=== PATIENT | female | born 2000 | race Caucasian/White ===

== ENCOUNTER 2022-11-04 12:35 | Emergency (ER) | payer MEDICAID, SELFPAY ==
[2022-11-04 12:45] VITALS: BP 120/87; PULSE 111; RESP 20; TEMP 36.8; O2SAT 98; BMI 21.0
[2022-11-04 13:10] LABS: Appearance Urine Clear (Clear); Bilirubin Urine Negative (Negative); Blood Urine Negative (Negative); Color Urine Yellow (Yellow); Glucose Urine Negative (Negative); Ketones Urine Negative (Negative); Leukocyte Esterase Urine Trace (Negative); Nitrite Urine Negative (Negative); Protein Urine Negative (Negative); Urobilinogen Urine 0.2 (0.2-1.0); pH Urine 7.5 (5.0-8.5)
[2022-11-04 13:29] LABS: RBC Urine 0-2 (0-2); Squamous Epithelial Cell Urine Few (None-Few)
--- NOTE | 2022-11-04 13:35 | ED_ITS ---
HPI - Female Genitourinary General Chief complaint: Urogenital Problems, Female Stated complaint: UTI Time Seen by Provider: 11/04/22 12:37 History of Present Illness HPI Narrative: This 22-year-old female comes in reporting pain with itching and burning in her vaginal region. She wonders if she might have a urinary tract infection. She has had 1 of these in the past. She also states however that she has had recurrent itching and occasional discharge over the past year so. She has not been on any antibiotics recently. She does report some whitish discharge currently. She is otherwise in good health. She denies any possibility of sexually transmitted disease. Related Data Previous Rx's Medication Instructions Recorded fluconazole 150 mg tablet 150 mg PO DAILY PRN vaginal 11/04/22 irritation #10 tabs Allergies Allergy/AdvReac Type Severity Reaction Status Date / Time No Known Drug Allergies Allergy Verified 11/04/22 12:54 Review of Systems Status of ROS: Reports: 10 or more systems reviewed and unremarkable except as noted in History and below Narrative: Constitutional: No fevers, no weight gain or loss. Eyes: No discharge. No vision changes. HENT: No congestion, no sore throat, no ear pain. Cardiovascular: No chest pain, no palpitations. Respiratory: No shortness of breath, no wheezes, no cough. Gastrointestinal: No abdominal pain, no vomiting, no diarrhea. Genitourinary: Vaginal pain and itching with some whitish discharge. Musculoskeletal: Normal range of motion. Skin: No rashes, no pruritis. Neurological: No dizziness, weakness, sensory change, speech change. Endo/Heme/Allergies: No bruising or bleeding. No polydipsia. Pysch: no suicidality, no anxiety, no insomnia. All other systems reviewed and are negative. PFSH PFS Social History Smoking Status: Never smoker Do you use any of these nicotine containing products: None Second hand tobacco smoke exposure: No How often do you have a drink containing alcohol: 2-4 times a month How many standard drinks containing alcohol do you have on a typical day: 1 or 2 AUDIT-C Alcohol total score: 2 Non-prescribed substance use: denies use Exam Narrative: Exam Narrative: Constitutional: Well-developed, well-nourished, no acute distress. HEENT: Normocephalic, atraumatic. Neck: Normal range of motion. Nontender. Supple. Heart: Regular. No murmurs. Normal rate. Intact distal pulses. Lungs: Clear to auscultation. No chest discomfort. No wheezes, rhonchi, or rales. Abdomen: Normal bowel sounds. Nontender. No rebound tenderness. Genitalia: Normal appearance with small amount of whitish discharge. Back: No midline tenderness. Normal range of motion. Extremities: Normal range of motion. No injury. Skin: Intact. No rash. Warm. No erythema or pallor. Neurologic: No altered sensation. No weakness. Alert and oriented. Psychiatric: No suicidality. No anxiety or depression. No insomnia. Nursing notes and vitals signs are reviewed. Const: Vital Signs, click to edit/add: Vital Signs - 24 hr 11/04/22 12:45 Temperature 98.2 F Pulse Rate [Left P ulse Oximeter] 111 H Respiratory Rate 20 Blood Pressure [Le ft Upper Arm] 120/87 Pulse Oximetry 98 Oxygen Delivery Me thod Room Air Course Vital Signs Vital signs: Initial Vital Signs Temperature 98.2 F 11/04/22 12:45 Temperature Source Temporal Artery Scan 11/04/22 12:45 Pulse Rate 111 H 11/04/22 12:45 Respiratory Rate 20 11/04/22 12:45 Blood Pressure 120/87 11/04/22 12:45 Blood Pressure Mean 98 11/04/22 12:45 Blood Pressure Position Supine 11/04/22 12:45 Pulse Oximetry 98 11/04/22 12:45 Oxygen Delivery Method 11/04/22 12:45 Vital Signs Temperature 98.2 F 11/04/22 12:45 Pulse Rate 111 H 11/04/22 12:45 Respiratory Rate 20 11/04/22 12:45 Blood Pressure 120/87 11/04/22 12:45 Pulse Oximetry 98 11/04/22 12:45 Oxygen Delivery Method 11/04/22 12:45 Temperature 98.2 F 11/04/22 12:45 Pulse Rate 111 H 11/04/22 12:45 Respiratory Rate 20 11/04/22 12:45 Blood Pressure 120/87 11/04/22 12:45 Pulse Oximetry 98 11/04/22 12:45 Oxygen Delivery Method 11/04/22 12:45 MDM - Female Genitourinary MDM Narrative Medical decision making narrative: This patient comes in with itching and burning in the vaginal area with some whitish discharge. The symptoms are very suspicious for a yeast infection. Urinalysis returns with no sign of urinary tract infection. A wet prep is done which also returns with no findings of yeast, bacteria, or Trichomonas. The patient is not and not suspicious for any other sexually transmitted condition. Despite the negative lab results I decided to treat with Diflucan an d recommended also Monistat if symptoms are recurrent. I advised her to follow- up with an OBGYN clinic if not improving or if symptoms are continuing to be recurrent. Lab Data Labs: Lab Results 11/04/22 11/04/22 Range/Units 12:55 13:50 Urine Color Yellow (Yellow) Urine Appearance Clear (Clear) Urine pH 7.5 (5.0-8.5) Ur Specific [place] 1.020 (1.000-1.030) Urine Protein Negative (Negative) Urine Glucose (UA) Negative (Negative) Urine Ketones Negative (Negative) Urine Blood Negative (Negative) Urine Nitrite Negative (Negative) Urine Bilirubin Negative (Negative) Urine Urobilinogen 0.2 (0.2-1.0) Ur Leukocyte Esterase Trace A (Negative) Urine RBC 0-2 (0-2) Urine WBC 2-5 (0-5) Ur Squamous Epith Cells Few (None-Few) Urine Bacteria None (None) Vaginal Trichomonas No Trichomonas Seen (None Seen) Vaginal Yeast No Yeast Seen (None Seen) Vaginal Clue Cells No Clue Cells Seen (None Seen) Discharge Plan Discharge Clinical Impression: Candidiasis of genitalia in female Patient Disposition: Home, Self-Care Condition: Stable Additional Instructions: Take medication as needed and indicated. Use Monistat also if needed. Follow- up with OBGYN clinic if symptoms are recurrent or if not improving. Prescriptions: New fluconazole 150 mg tablet 150 mg PO DAILY PRN (Reason: vaginal irritation) Qty: 10 0RF Follow Up/Referrals: Provider,Not a Local [Primary Care Provider] - Stand Alone Forms: [employer] [place] Info Instructions
[2022-11-04 14:20] LABS: Clue Cells No Clue Cells Seen (None Seen); Trichomonas No Trichomonas Seen (None Seen); Yeast No Yeast Seen (None Seen)
== END 2022-11-04 15:04 | disposition home or self-care (01) ==
PROVIDERS: Emergency Provider Emergency Medicine Emergency Medical Services
DX: B37.31 Acute candidiasis of vulva and vagina (principal)
CPT/HCPCS: 81001; 87210; 99283; 99284